=== PATIENT | male | born 1940 | race Caucasian/White ===

== ENCOUNTER → 2020-10-27 09:51 | Outpatient (CLI) | payer MEDICARE, OTHER, SELFPAY ==
--- NOTE | 2020-10-27 09:51 | CA_ITS ---
APPROVED REPORT EXAM: Comprehensive 2D, Doppler, and color-flow Echocardiogram Pipe Changer: Yvonne Lyman, WILNER, RVS Ht: 6 ft 2 in Wt: 228lbs BSA: 2.30 HR: 61 bpm BP: 129/76 mmHg Rhythm: RBBB Indications: CAD, CABG X 2-1998, RBBB 2D Dimensions IVSd 1.01 cm M: 0.6-1.2 LVEF (Visual) 52.50 % PWd 0.79 cm M: 0.6 - 1.2 LA Volume 63.00 mL LVDd 4.96 cm M: 4.2 - 5.9 LA Volume Index 27.51 mL/m2 (M/F) 16-34 LVDs 3.62 cm M: 2.5 - 4.0 LVOT 2.11 cm (M/F) 1.5-2.5 M-Mode Dimensions LA Diam 4.27 cm (1.9-4.0) Ao Diam 3.47 cm (2.0-3.7) EPSs 0.57 cm TAPSE 1.57 (<1.7) LV Diastology E Decel Time 223.00 (160-240 msec) E/A Ratio 0.84 MED E' 8.40 (< 7 cm/sec) MED A' 9.90 cm/s E'/MED E' Ratio 9.55 (>14) LAT E' 11.60 (<10 cm/sec) LAT A' 13.70 cm/s E/LAT E' Ratio 6.91 (>14) Aortic Valve LVOT Max 106.00 (70-110 cm/s) LVOT VTI 23.32 cm AO Peak GR. 4.80 mmHg Mitral Valve MV A Velocity 96.00 (40-130 cm/s) E/A Ratio 0.84 MV Decel. Time 223.00 (160-240 ms) Pulmonary Valve PV Peak Velocity 61.00 (50-150 cm/s) Tricuspid Valve TR P. Velocity 247.00 cm/s RAP Estimate 10.00 mmHg RVSP 34.40 mmHg Left Ventricle Left atrium is mildly enlarged, left ventricle is normal size, mild concentric left ventricular hypertrophy, visually estimated ejection fraction 55% with no regional wall motion abnormality, grade 1 diastolic dysfunction seen without tissue Doppler evidence of raise left atrial pressure. Right Ventricle Right atrium and right ventricle mildly enlarged with normal contractility. Aortic Valve Aortic valve is minimally thickened and fibrosed, there is no aortic stenosis or aortic insufficiency. Mitral Valve Mitral valve is minimally thickened, there is mild mitral regurgitation. Tricuspid Valve Tricuspid grossly normal, there is trace tricuspid regurgitation, calculated right ventricular systolic pressure 34 mmHg. Pulmonic Valve Pulmonic valve is poorly visualized. Great Vessels Aortic root is normal size. Pericardium No significant pericardial effusion noted. Conclusion 1. Mildly enlarged left atrium, normal left ventricular size, mild concentric left ventricular hypertrophy, visually estimated ejection fraction 55% with no regional wall motion abnormality, grade 1 diastolic dysfunction seen without tissue Doppler evidence of raise left atrial pressure. 2. Mild mitral and tricuspid regurgitation, calculated right ventricular systolic pressure is 34 mmHg. 3. No significant pericardial effusion noted. Electronically signed by : Jace Chang, 10/27/2020 22:25:42
== END ==
PROVIDERS: PCP Family Medicine; Visit Provider Nurse Practitioner Family
DX: E78.2 Mixed hyperlipidemia (principal); I11.9 Hypertensive heart disease without heart failure; I25.10 Atherosclerotic heart disease of native coronary artery without angina pectoris; I45.10 Unspecified right bundle-branch block
CPT/HCPCS: 93306

== ENCOUNTER → 2021-10-26 11:20 | Outpatient (CLI) | payer MEDICARE, OTHER, SELFPAY ==
--- NOTE | 2021-10-26 11:35 | NM_ITS ---
APPROVED REPORT Exam: Nuclear Stress Test Indication: Angina, High cholesterol, Family history, Hx of AL, CABG Patient Location: Outpatient Stress Tech: Sudha Guerrero [place] Tech:Alivia Barone, ARRT, RT (R)(N) Ht: 6 ft 2 in Wt: 228 lbs HR: 70 bpm BP: 152/81 mmHg BSA: 2.30 m2 BMI: 29.2 History: Angina, High cholesterol, Family history, Hx of AL, CABG Procedure: Patient received a 0.4 mg of intravenous Lexiscan, resting heart rate 70 bpm, resting blood pressure 152/81 mmHg, with Lexiscan maximum heart rate achived was 104 bpm which is Less than 85 resting electrocardiogram shows sinus rhythm right bundle branch block, % of the maximum predicted heart rate and blood pressure was 152/81 mmHg. With Lexiscan, patient denied any complaint of chest pain. Electrocardiogram Resting electrocardiogram showed sinus rhythm right bundle branch block, with Lexiscan there is less than 1.[address] segment depression noted from the baseline EKG. Cardiac Stress and Resting SPECT Images: Cardiac Stress and Resting SPECT images were obtained using technetium 99m Myoview 32.1 mCi stress and 10.65 mCi at rest. Patient unable to lay on stomach for prone images. Gated SPECT for analysis of segmental wall motion and calculation of ejection fraction also done. Cardiac stress and resting SPECT images show uniform myocardial activity without segmental perfusion abnormality, computer derived ejection fraction is over 65% with no regional wall motion abnormality, right ventricle is mildly enlarged with normal contractility. Conclusion: 1. The EKG portion of the Lexiscan is nondiagnostic. 2. No scintigraphic evidence of reversible ischemia seen, computer derived ejection fraction is over 65% with no regional wall motion abnormality, right ventricle is mildly enlarged with normal contractility. 3. Normal Lexiscan Myoview study. Electronically signed by : Jace Chang MD 10/26/2021 20:07:42
--- NOTE | 2021-10-26 13:02 | HMH.ITSHM ---
Current Home Medications as stated by this patient Ilan Gilliam or union contract representative. []ATENOLOL ASA AMLODIPINE
--- NOTE | 2021-10-26 13:28 | CA_ITS ---
APPROVED REPORT Exam: Pharmacologic Technologist: Sudha Borrego, Ht: 6 ft 2 in Wt: 228 lbs BSA: 2.30 m2 HR: 66 bpm BP: 152/81 mmHg Medical History Medications: Aspirin,,,,, Atenolol,,,,, Norvasc,,,,, Stress Test Details Test: LEXISCAN HR Resting HR: 70 bpm Max Heart Rate (APMHR): 139.892213 bpm Max HR Achieved: 104 bpm Target HR (85% APMHR): 118.586932 bpm % of APMHR: 74.82 Recovery HR: 82 bpm BP Resting BP: 152/81 mmHg Max BP: 152/81 mmHg Recovery BP: 146.0/71.0 mmHg ECG Resting ECG: NSR, 1 degree AVB, RBBB, PAC Clinical Exercise duration: 04:00 min Highest Stage Achieved: Exercise capacity: 1.0 METs Stress ECG Conclusion Symptoms: Fleeting CP. Mild SOA and stomach discomfort. Arrhythmias/Ectopy: Occ PVC, Occ PAC. ST-T Changes: No significant changes. Conclusion: Non-diagnostic Lexiscan stress. Myoview images reported separately. Test Summary REST . . . . . . . Resting REST 03:21 . . 70 . 152/ 81 . . Stage 1 01:00 . . 99 . . . . Stage 2 01:00 . . 99 . . . . Stage 3 01:00 . . 92 . 149/ 73 . . Stage 4 01:00 . . 87 . 147/ 74 . Stop exercise at 04:00 RECOVERY 01:00 . . 86 . 145/ 76 . . RECOVERY 02:00 . . 81 . 145/ 76 . . RECOVERY 03:00 . . 81 . 146/ 71 . . RECOVERY 03:19 . . 81 . 146/ 71 . . Electronically signed by : Jace Chang MD 10/26/2021 20:05:16
== END ==
PROVIDERS: PCP Internal Medicine; Visit Provider Nurse Practitioner Family
DX: E78.2 Mixed hyperlipidemia (principal); I11.9 Hypertensive heart disease without heart failure; I20.9 Angina pectoris, unspecified
CPT/HCPCS: 78452; 93017; A9502; J2785